=== PATIENT | male | born 1955 | race Two or more races ===

== ENCOUNTER 2017-03-20 08:00 | Outpatient (CLI) | payer MEDICARE, OTHER ==
[2017-03-20 14:01] LABS: BASOPHILS # (AUTO) 0.1 10^3/uL (0.0-0.1); BASOPHILS % (AUTO) 1.2 %; EOSINOPHILS # (AUTO) 0.5 10^3/uL (0.0-0.7); EOSINOPHILS % (AUTO) 6.4 %; HCT - HEMATOCRIT 40.5 % (42.0-52.0); HGB - HEMOGLOBIN 13.5 g/dL (14.0-18.0); LYMPHOCYTES # (AUTO) 2.2 10^3/uL (1.5-3.5); MEAN CORPUSCULAR HEMOGLOBIN 28.9 pg (27.0-31.0); MEAN CORPUSCULAR HGB CONC 33.4 g/dL (32.0-36.0); MEAN CORPUSCULAR VOLUME 86.4 fL (80.0-94.0); MEAN PLATELET VOLUME 8.7 fL (7.4-11.4); MONOCYTES # (AUTO) 1.1 10^3/uL (0.0-1.0); MONOCYTES % (AUTO) 12.7 %; NEUTROPHILS # (AUTO) 4.6 10^3/uL (1.5-6.6); NEUTROPHILS % (AUTO) 53.7 %; RED BLOOD COUNT 4.69 10^6/uL (4.70-6.10); RED CELL DISTRIBUTION WIDTH 13.7 % (12.0-15.0); UNCORRECTED WHITE BLOOD COUNT 8.5 x10^3/uL; WHITE BLOOD COUNT 8.5 x10^3/uL (4.8-10.8)
[2017-03-20 14:34] LABS: BILIRUBIN,DIRECT 0.1 mg/dL (0.1-0.5); BILIRUBIN,TOTAL 0.6 mg/dL (0.2-1.0); CALCIUM 9.3 mg/dL (8.5-10.3); CREATININE 0.8 mg/dL (0.6-1.2); POTASSIUM 3.9 mmol/L (3.5-5.0); TOTAL PROTEIN 7.3 g/dL (6.7-8.2)
== END 2017-03-20 08:01 | disposition home or self-care (01) ==
LOC: LAB.WCP 08:00
PROVIDERS: ATTEND Podiatrist
DX: B35.1 Tinea unguium (principal)
CPT/HCPCS: 36415; 80048; 80076; 85025

== ENCOUNTER 2017-04-10 07:50 | Outpatient (CLI) | payer MEDICARE, OTHER ==
[2017-04-10 13:43] LABS: ALBUMIN/GLOBULIN RATIO 1.5 (1.0-2.2); BILIRUBIN,TOTAL 0.5 mg/dL (0.2-1.0); BUN - BLOOD UREA NITROGEN 21 mg/dL (6-20); CALCIUM 9.3 mg/dL (8.5-10.3); CARBON DIOXIDE - CO2 27 mmol/L (21-32); CHLORIDE 104 mmol/L (101-111); CHOL/HDL RATIO 8.3 (<5.0); CHOLESTEROL 283 mg/dL; CREATININE 0.9 mg/dL (0.6-1.2); GFR - MDRD 86 (>89); GLUCOSE 93 mg/dL (70-100); HDL CHOLESTEROL 34 mg/dL; LDL/HDL RATIO 6.4 (<3.6); POTASSIUM 3.7 mmol/L (3.5-5.0); SODIUM 140 mmol/L (135-145); TOTAL PROTEIN 7.1 g/dL (6.7-8.2); TRIGLYCERIDES 153 mg/dL; VLDL CHOLESTEROL 31 mg/dL
== END 2017-04-10 07:51 | disposition home or self-care (01) ==
LOC: LAB.WCP 07:50
PROVIDERS: ATTEND Family Medicine
DX: Z00.00 Encounter for general adult medical examination without abnormal findings (principal); G89.4 Chronic pain syndrome
CPT/HCPCS: 36415; 80053; 80061; 80306; 84443

== ENCOUNTER 2017-04-17 11:16 | Outpatient (CLI) | payer MEDICARE, OTHER | END 2017-04-17 11:17 | disposition home or self-care (01) | LOC: LAB.WCP 11:16 | PROVIDERS: ATTEND Family Medicine | DX: F32.9 Major depressive disorder, single episode, unspecified (principal) | CPT/HCPCS: 36415; 84403 ==

== ENCOUNTER 2017-05-30 11:37 | Outpatient (CLI) | payer MEDICARE, OTHER ==
[2017-05-30 19:13] LABS: BASOPHILS # (AUTO) 0.1 10^3/uL (0.0-0.1); BASOPHILS % (AUTO) 1.2 %; EOSINOPHILS # (AUTO) 0.5 10^3/uL (0.0-0.7); EOSINOPHILS % (AUTO) 5.3 %; HCT - HEMATOCRIT 40.3 % (42.0-52.0); HGB - HEMOGLOBIN 13.5 g/dL (14.0-18.0); LYMPHOCYTES # (AUTO) 2.2 10^3/uL (1.5-3.5); LYMPHOCYTES % (AUTO) 21.9 %; MEAN CORPUSCULAR HEMOGLOBIN 29.1 pg (27.0-31.0); MEAN CORPUSCULAR HGB CONC 33.5 g/dL (32.0-36.0); MEAN CORPUSCULAR VOLUME 86.9 fL (80.0-94.0); MEAN PLATELET VOLUME 8.2 fL (7.4-11.4); MONOCYTES # (AUTO) 1.1 10^3/uL (0.0-1.0); MONOCYTES % (AUTO) 11.1 %; NEUTROPHILS # (AUTO) 6.1 10^3/uL (1.5-6.6); NEUTROPHILS % (AUTO) 60.5 %; RED BLOOD COUNT 4.64 10^6/uL (4.70-6.10); RED CELL DISTRIBUTION WIDTH 13.7 % (12.0-15.0); UNCORRECTED WHITE BLOOD COUNT 10.1 x10^3/uL; WHITE BLOOD COUNT 10.1 x10^3/uL (4.8-10.8)
[2017-05-30 19:38] LABS: BILIRUBIN,TOTAL 0.5 mg/dL (0.2-1.0); BUN - BLOOD UREA NITROGEN 24 mg/dL (6-20); CALCIUM 9.3 mg/dL (8.5-10.3); CARBON DIOXIDE - CO2 24 mmol/L (21-32); CHLORIDE 104 mmol/L (101-111); CREATININE 1.1 mg/dL (0.6-1.2); GFR - MDRD 68 (>89); GLUCOSE 110 mg/dL (70-100); POTASSIUM 3.8 mmol/L (3.5-5.0); SODIUM 138 mmol/L (135-145); TOTAL PROTEIN 7.7 g/dL (6.7-8.2)
[2017-05-30 20:33] LABS: BILIRUBIN,DIRECT < 0.1 mg/dL (0.1-0.5)
== END 2017-05-30 11:38 | disposition home or self-care (01) ==
LOC: LAB.WCP 11:37
PROVIDERS: ATTEND Podiatrist
DX: B35.1 Tinea unguium (principal)
CPT/HCPCS: 36415; 80048; 80076; 85025

== ENCOUNTER 2017-06-27 12:09 | Outpatient (CLI) | payer MEDICARE, OTHER ==
[2017-06-27 13:18] LABS: CREATININE 0.9 mg/dL (0.6-1.2)
== END 2017-06-27 12:10 | disposition home or self-care (01) ==
LOC: LAB.WCP 12:09
PROVIDERS: ATTEND Podiatrist
DX: B35.1 Tinea unguium (principal)
CPT/HCPCS: 36415; 82565; 84520

== ENCOUNTER 2017-07-01 09:15 | Outpatient (CLI) | payer MEDICARE, OTHER ==
[2017-07-01 14:22] LABS: ALBUMIN/GLOBULIN RATIO 1.3 (1.0-2.2); BILIRUBIN,TOTAL 0.3 mg/dL (0.2-1.0); BUN - BLOOD UREA NITROGEN 19 mg/dL (6-20); CALCIUM 9.5 mg/dL (8.5-10.3); CARBON DIOXIDE - CO2 27 mmol/L (21-32); CHLORIDE 104 mmol/L (101-111); CHOL/HDL RATIO 6.3 (<5.0); CHOLESTEROL 227 mg/dL; GFR - MDRD 76 (>89); GLUCOSE 98 mg/dL (70-100); HDL CHOLESTEROL 36 mg/dL; LDL/HDL RATIO 4.7 (<3.6); POTASSIUM 3.8 mmol/L (3.5-5.0); SODIUM 139 mmol/L (135-145); TOTAL PROTEIN 7.4 g/dL (6.7-8.2); TRIGLYCERIDES 110 mg/dL; VLDL CHOLESTEROL 22 mg/dL
== END 2017-07-01 09:16 | disposition home or self-care (01) ==
LOC: LAB.WCP 09:15
PROVIDERS: ATTEND Family Medicine
DX: E78.5 Hyperlipidemia, unspecified (principal)
CPT/HCPCS: 36415; 80053; 80061

== ENCOUNTER 2017-10-13 08:00 | Outpatient (CLI) | payer MEDICARE, OTHER ==
[2017-10-13 13:01] LABS: ALBUMIN/GLOBULIN RATIO 1.3 (1.0-2.2); BILIRUBIN,TOTAL 0.5 mg/dL (0.2-1.0); BUN - BLOOD UREA NITROGEN 18 mg/dL (6-20); CALCIUM 9.2 mg/dL (8.5-10.3); CARBON DIOXIDE - CO2 25 mmol/L (21-32); CHLORIDE 104 mmol/L (101-111); CHOL/HDL RATIO 5.5 (<5.0); CHOLESTEROL 203 mg/dL; CREATININE 0.9 mg/dL (0.6-1.2); GFR - MDRD 86 (>89); GLUCOSE 97 mg/dL (70-100); HDL CHOLESTEROL 37 mg/dL; POTASSIUM 3.7 mmol/L (3.5-5.0); SODIUM 138 mmol/L (135-145); TOTAL PROTEIN 7.5 g/dL (6.7-8.2); TRIGLYCERIDES 92 mg/dL; VLDL CHOLESTEROL 18 mg/dL
== END 2017-10-13 08:01 | disposition home or self-care (01) ==
LOC: LAB.WCP 08:00
PROVIDERS: ATTEND Family Medicine
DX: E78.5 Hyperlipidemia, unspecified (principal)
CPT/HCPCS: 36415; 80053; 80061

== ENCOUNTER 2018-02-02 07:54 | Outpatient (CLI) | payer MEDICARE, OTHER ==
[2018-02-02 13:17] LABS: ALBUMIN 4.2 g/dL (3.2-5.5); ALBUMIN/GLOBULIN RATIO 1.4 (1.0-2.2); ALKALINE PHOSPHATASE 56 IU/L (42-121); ALT ALANINE AMINOTRANSFERASE 22 IU/L (10-60); AST ASPARTATE AMINOTRANSFERASE 25 IU/L (10-42); BILIRUBIN,TOTAL 0.4 mg/dL (0.2-1.0); BUN - BLOOD UREA NITROGEN 19 mg/dL (6-20); CALCIUM 8.9 mg/dL (8.5-10.3); CARBON DIOXIDE - CO2 28 mmol/L (21-32); CHLORIDE 103 mmol/L (101-111); CHOLESTEROL 174 mg/dL; GFR - MDRD 76 (>89); GLUCOSE 96 mg/dL (70-100); HDL CHOLESTEROL 32 mg/dL; LDL CHOLESTEROL,CALCULATED 124 mg/dL; SODIUM 137 mmol/L (135-145); TOTAL PROTEIN 7.1 g/dL (6.7-8.2); VLDL CHOLESTEROL 18 mg/dL
[2018-02-02 13:18] LABS: CHOL/HDL RATIO 5.4 (<5.0); LDL/HDL RATIO 3.9 (<3.6)
== END 2018-02-02 07:55 | disposition home or self-care (01) ==
LOC: LAB.WCP 07:54
PROVIDERS: ATTEND Family Medicine
DX: E78.5 Hyperlipidemia, unspecified (principal)
CPT/HCPCS: 36415; 80053; 80061; 83721

== ENCOUNTER 2018-05-05 07:48 | Outpatient (CLI) | payer OTHER, MEDICARE ==
[2018-05-05 13:48] LABS: ALBUMIN 3.9 g/dL (3.2-5.5); ALBUMIN/GLOBULIN RATIO 1.1 (1.0-2.2); ALKALINE PHOSPHATASE 51 IU/L (42-121); ALT ALANINE AMINOTRANSFERASE 22 IU/L (10-60); AST ASPARTATE AMINOTRANSFERASE 23 IU/L (10-42); BILIRUBIN,TOTAL 0.6 mg/dL (0.2-1.0); BUN - BLOOD UREA NITROGEN 23 mg/dL (6-20); CALCIUM 9.1 mg/dL (8.5-10.3); CARBON DIOXIDE - CO2 28 mmol/L (21-32); CHLORIDE 106 mmol/L (101-111); CHOL/HDL RATIO 4.4 (<5.0); CHOLESTEROL 151 mg/dL; CREATININE 0.9 mg/dL (0.6-1.2); GFR - MDRD 85 (>89); GLUCOSE 96 mg/dL (70-100); HDL CHOLESTEROL 34 mg/dL; LDL CHOLESTEROL,CALCULATED 101 mg/dL; SODIUM 140 mmol/L (135-145); TOTAL PROTEIN 7.3 g/dL (6.7-8.2); VLDL CHOLESTEROL 16 mg/dL
== END 2018-05-05 07:49 | disposition home or self-care (01) ==
LOC: LAB.WCP 07:48
PROVIDERS: ATTEND Family Medicine
DX: E78.5 Hyperlipidemia, unspecified (principal)
CPT/HCPCS: 36415; 80053; 80061; 83721

== ENCOUNTER 2018-09-28 10:02 | Outpatient (CLI) | payer OTHER, MEDICARE ==
[2018-09-28 15:16] LABS: % IRON SATURATION 28 % (20-50); IRON 69 ug/dL (45-182); TOTAL IRON BINDING CAPACITY 249 ug/dL (250-450); TRANSFERRIN 178 mg/dL (180-329)
== END 2018-09-28 23:59 ==
LOC: LAB.WCP 10:02
PROVIDERS: ATTEND Physician Assistant
DX: D64.9 Anemia, unspecified (principal)
CPT/HCPCS: 36415; 83540; 84466

== ENCOUNTER 2019-01-06 08:00 | Outpatient (CLI) | payer OTHER, MEDICARE ==
[2019-01-06 12:31] LABS: BASOPHILS # (AUTO) 0.1 10^3/uL (0.0-0.1); BASOPHILS % (AUTO) 1.5 %; EOSINOPHILS # (AUTO) 0.5 10^3/uL (0.0-0.7); EOSINOPHILS % (AUTO) 5.9 %; HGB - HEMOGLOBIN 12.9 g/dL (14.0-18.0); LYMPHOCYTES # (AUTO) 2.1 10^3/uL (1.5-3.5); LYMPHOCYTES % (AUTO) 25.8 %; MEAN CORPUSCULAR HEMOGLOBIN 28.9 pg (27.0-31.0); MEAN CORPUSCULAR HGB CONC 33.7 g/dL (32.0-36.0); MEAN CORPUSCULAR VOLUME 85.9 fL (80.0-94.0); MEAN PLATELET VOLUME 8.4 fL (7.4-11.4); MONOCYTES % (AUTO) 12.3 %; NEUTROPHILS # (AUTO) 4.4 10^3/uL (1.5-6.6); NEUTROPHILS % (AUTO) 54.5 %; PLT - PLATELET COUNT 245 10^3/uL (130-450); RED BLOOD COUNT 4.45 10^6/uL (4.70-6.10); RED CELL DISTRIBUTION WIDTH 13.4 % (12.0-15.0); WHITE BLOOD COUNT 8.1 x10^3/uL (4.8-10.8)
[2019-01-06 13:10] LABS: % IRON SATURATION 29 % (20-50); ALBUMIN 4.1 g/dL (3.2-5.5); ALBUMIN/GLOBULIN RATIO 1.3 (1.0-2.2); ALKALINE PHOSPHATASE 44 IU/L (42-121); ALT ALANINE AMINOTRANSFERASE 23 IU/L (10-60); AST ASPARTATE AMINOTRANSFERASE 25 IU/L (10-42); BILIRUBIN,TOTAL 0.7 mg/dL (0.2-1.0); BUN - BLOOD UREA NITROGEN 21 mg/dL (6-20); CALCIUM 8.9 mg/dL (8.5-10.3); CARBON DIOXIDE - CO2 27 mmol/L (21-32); CHLORIDE 104 mmol/L (101-111); CHOL/HDL RATIO 3.7 (<5.0); CHOLESTEROL 158 mg/dL; CREATININE 0.7 mg/dL (0.6-1.2); GFR - MDRD 114 (>89); GLUCOSE 103 mg/dL (70-100); HDL CHOLESTEROL 43 mg/dL; IRON 80 ug/dL (45-182); LDL CHOLESTEROL,CALCULATED 101 mg/dL; LDL/HDL RATIO 2.3 (<3.6); SODIUM 139 mmol/L (135-145); TOTAL IRON BINDING CAPACITY 280 ug/dL (250-450); TOTAL PROTEIN 7.2 g/dL (6.7-8.2); TRANSFERRIN 200 mg/dL (180-329); VLDL CHOLESTEROL 14 mg/dL
== END 2019-01-06 23:59 | disposition home or self-care (01) ==
LOC: LAB.WCP 08:00
PROVIDERS: ATTEND Family Medicine
DX: I10 Essential (primary) hypertension (principal); E78.5 Hyperlipidemia, unspecified; D64.9 Anemia, unspecified
CPT/HCPCS: 36415; 80053; 80061; 83540; 83721; 84466; 85025

== ENCOUNTER 2019-10-12 10:05 | Outpatient (CLI) | payer MEDICARE, OTHER ==
[2019-10-12 14:54] LABS: ALBUMIN 4.2 g/dL (3.2-5.5); ALBUMIN/GLOBULIN RATIO 1.4 (1.0-2.2); BILIRUBIN,TOTAL 0.5 mg/dL (0.2-1.0); CALCIUM 9.1 mg/dL (8.5-10.3); CREATININE 0.9 mg/dL (0.6-1.2); TOTAL PROTEIN 7.2 g/dL (6.7-8.2)
[2019-10-12 15:07] LABS: BASOPHILS # (AUTO) 0.1 10^3/uL (0.0-0.1); BASOPHILS % (AUTO) 1.4 %; EOSINOPHILS # (AUTO) 0.6 10^3/uL (0.0-0.7); HGB - HEMOGLOBIN 12.5 g/dL (14.0-18.0); LYMPHOCYTES # (AUTO) 1.8 10^3/uL (1.5-3.5); LYMPHOCYTES % (AUTO) 21.3 %; MEAN CORPUSCULAR HEMOGLOBIN 27.9 pg (27.0-31.0); MEAN PLATELET VOLUME 10.5 fL (7.4-11.4); NEUTROPHILS # (AUTO) 4.9 10^3/uL (1.5-6.6); NEUTROPHILS % (AUTO) 57.9 %; PLT - PLATELET COUNT 267 10^3/uL (130-450); RED BLOOD COUNT 4.48 10^6/uL (4.70-6.10); RED CELL DISTRIBUTION WIDTH 12.8 % (12.0-15.0); WHITE BLOOD COUNT 8.5 x10^3/uL (4.8-10.8)
[2019-10-13 10:01] LABS: % IRON SATURATION 31 % (20-50); IRON 86 ug/dL (45-182); TOTAL IRON BINDING CAPACITY 277 ug/dL (250-450); TRANSFERRIN 198 mg/dL (180-329)
== END 2019-10-12 23:59 | disposition home or self-care (01) ==
LOC: LAB.WCP 10:05
PROVIDERS: ATTEND Physician Assistant
DX: I10 Essential (primary) hypertension (principal); D64.9 Anemia, unspecified
CPT/HCPCS: 36415; 80053; 83540; 84466; 85025

== ENCOUNTER 2020-01-19 13:42 | Outpatient (CLI) | payer MEDICARE, OTHER ==
[2020-01-19 17:58] LABS: BASOPHILS # (AUTO) 0.1 10^3/uL (0.0-0.1); BASOPHILS % (AUTO) 1.3 %; EOSINOPHILS # (AUTO) 0.6 10^3/uL (0.0-0.7); EOSINOPHILS % (AUTO) 6.8 %; HGB - HEMOGLOBIN 12.5 g/dL (14.0-18.0); LYMPHOCYTES # (AUTO) 2.4 10^3/uL (1.5-3.5); MEAN CORPUSCULAR HEMOGLOBIN 29.3 pg (27.0-31.0); MEAN CORPUSCULAR VOLUME 91.8 fL (80.0-94.0); MEAN PLATELET VOLUME 10.4 fL (7.4-11.4); MONOCYTES % (AUTO) 11.3 %; NEUTROPHILS # (AUTO) 4.8 10^3/uL (1.5-6.6); NEUTROPHILS % (AUTO) 53.3 %; PLT - PLATELET COUNT 252 10^3/uL (130-450); RED BLOOD COUNT 4.26 10^6/uL (4.70-6.10); RED CELL DISTRIBUTION WIDTH 12.8 % (12.0-15.0)
== END 2020-01-19 23:59 | disposition home or self-care (01) ==
LOC: LAB.WCP 13:42
PROVIDERS: ATTEND Physician Assistant
DX: D64.9 Anemia, unspecified (principal)
CPT/HCPCS: 36415; 85025

== ENCOUNTER 2020-04-03 08:00 | Outpatient (CLI) | payer MEDICARE, OTHER ==
[2020-04-03 12:11] LABS: BASOPHILS # (AUTO) 0.1 10^3/uL (0.0-0.1); BASOPHILS % (AUTO) 1.4 %; EOSINOPHILS # (AUTO) 0.6 10^3/uL (0.0-0.7); EOSINOPHILS % (AUTO) 6.6 %; HGB - HEMOGLOBIN 13.3 g/dL (14.0-18.0); LYMPHOCYTES # (AUTO) 2.2 10^3/uL (1.5-3.5); LYMPHOCYTES % (AUTO) 24.5 %; MEAN CORPUSCULAR HEMOGLOBIN 28.6 pg (27.0-31.0); MEAN CORPUSCULAR HGB CONC 32.3 g/dL (32.0-36.0); MEAN CORPUSCULAR VOLUME 88.6 fL (80.0-94.0); MEAN PLATELET VOLUME 10.4 fL (7.4-11.4); MONOCYTES # (AUTO) 0.9 10^3/uL (0.0-1.0); MONOCYTES % (AUTO) 10.7 %; NEUTROPHILS % (AUTO) 56.5 %; PLT - PLATELET COUNT 247 10^3/uL (130-450); RED BLOOD COUNT 4.65 10^6/uL (4.70-6.10); RED CELL DISTRIBUTION WIDTH 12.6 % (12.0-15.0); WHITE BLOOD COUNT 8.8 x10^3/uL (4.8-10.8)
[2020-04-03 12:34] LABS: ALBUMIN 4.1 g/dL (3.2-5.5); ALBUMIN/GLOBULIN RATIO 1.3 (1.0-2.2); BILIRUBIN,TOTAL 0.5 mg/dL (0.2-1.0); CALCIUM 9.1 mg/dL (8.5-10.3); CREATININE 1.1 mg/dL (0.6-1.2); TOTAL PROTEIN 7.2 g/dL (6.7-8.2)
== END 2020-04-03 23:59 | disposition home or self-care (01) ==
LOC: LAB.WCP 08:00
PROVIDERS: ATTEND Nurse Practitioner Family
DX: D64.9 Anemia, unspecified (principal); R00.2 Palpitations
CPT/HCPCS: 36415; 80053; 84443; 85025

== ENCOUNTER 2020-04-06 07:39 | Outpatient (CLI) | payer MEDICARE, OTHER | END 2020-04-06 07:40 | disposition home or self-care (01) | LOC: DI 07:39 | PROVIDERS: ATTEND Nurse Practitioner Family | DX: I11.9 Hypertensive heart disease without heart failure (principal); I34.0 Nonrheumatic mitral (valve) insufficiency; R00.2 Palpitations | CPT/HCPCS: 93306 ==

== ENCOUNTER 2020-05-30 15:10 | Outpatient (CLI) | payer MEDICARE, OTHER ==
[2020-05-30 16:39] VITALS: BP 158/84
--- NOTE | 2020-05-30 16:39 | SLEEP CARE CONSULTATION ---
Information from patient questionnaire entered by Amrita Luther. I have reviewed and concur with the information entered by Amrita Luther. This document represents the service I personally performed and the decisions made by me, Miri Thomason ARNP. History of Present Illness Service Date and Time: 05/30/2020 1510 Reason for Visit: New patient Chief Complaint: reports: Snoring, Observed pauses in breathing, Fatigue, Other (Doctor's orders). denies: Unrefreshed sleep, Excessive daytime sleepiness, Frequent awakenings at night Duration of Symptoms: 6 years Usual bedtime: 11 PM Time it takes to fall asleep: 5-10 minutes Snores at night: Yes Observed to quit breathing while asleep: Yes (According to my ) Sleeps alone due to snoring: Yes Number of times waking at night: once Reasons for waking at night: reports: Pain, Bathroom. denies: Choking, Snoring, Gasping for air Toss, Turn, or Twitch while sleeping: No Recalls having dreams: Yes (Often) Usually gets out of bed at: 6:30 AM Feels refreshed in the morning: Yes Morning headache: No Sleepy or fatigued during the day: Yes (Usually about 3 PM) Ever fallen asleep while driving: Yes (As a teenager; he is a drowsy passenger in the car) Takes day naps: Yes (Often) Dreams during day naps: Yes Prior sleep studies: No Additional HPI information: Patient presents with a history of loud snoring and observed pauses in breathing while sleeping. He states his commercial diver sent him in for evaluation due to increase in symptoms with his heart murmur. Since February 2020, he has been having an increase in fatigue and trouble concentrating with fluttering heart palpitations. He states not excessively sleepy but that given the chance in the afternoon he could easily take a nap. He denies any drowsy driving. - Parasomnia Symptoms Ever been unable to move upon waking from sleep: No Walks in sleep: No Talks in sleep: No Ever acted out dreams in sleep: No Ever felt weak in the knees when startled or emotional: No Bothered by creepy, crawly, restless sensations in legs: No Problems with memory or concentration: Yes (Seldom) Subjective Initial [place] Sleepiness Scale score: 7 (in 2019) Past Medical History Past Medical History: reports: Hypertension (worse when at doctors office sometimes), Arthritis, Anemia, Asthma, Depression, Other (heart murmur). 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 Patient is and lives in [place]. Have you smoked in the past 12 months: No Cigarettes per day (20/pack): 20 Years of smokin Quit date: 2003 Smoking Pack Years: 3.0 Alcohol use: Yes Alcohol amount and frequency: 1 drink 3 times a week Caffeine use: Yes Caffeine amount and frequency: 2 cups a day Family History Family history of sleep disordered breathing: No Family Hx Sleep Apnea: Father: Snoring Allergies and Home Medications Drug allergies reviewed: Yes (tramadol ER) Home medication list reviewed: Yes (see list) Allergy and home medication list: albuterol advair gabapentin cyclobenzaprine diclofenac sodium amlodipine hydralazine Review of Systems Weight loss over past 5 years: 5 Cardiovascular: reports: high blood pressure, palpitations, have to sleep sitting up, other (heart murmur causing problems since February, has had murmur since child). denies: chest pain, irregular heart rate or pulse Respiratory: reports: wheeze. denies: shortness of breath, chronic cough Gastrointestinal: denies: heartburn, difficulty swallowing Urinary: reports: urgency. denies: impotence Neurological: reports: gait or balance problems (spinal related, 5 vertebrae in neck fused and 5 vertebrae in lumbar fused). denies: headaches, seizure, head trauma, disorientation Psychiatric: reports: depression (occasional). denies: anxiety, mood disorder, claustrophobia Ear/Nose/Throat: reports: nasal congestion (seasonal allergies), dry mouth/throat (after snoring, when sleeping prone position; sleeps sitting up due to back issues), wisdom teeth removed. denies: sinus problems, nose bleeds, hoarseness, injury to nose, tonsillectomy Endocrine: reports: sluggishness, increased urination. denies: thyroid disease Musculoskeletal: reports: joint pain, muscle pain or cramping, mobility problems Immunologic: reports: sneezing, itching, allergies to food or environment Physical Exam Blood Pressure: 158/84 Cuff size: long Heart Rate: 59 O2 Saturation: 97 Height: 6 ft 1 in Weight: 211 lb 3.2 oz Body Mass Index: 27.8 BMI Classification: Overweight Neck circumference: 16.75 (inches) HEENT: No craniofacial malformation Nostrils: patent to airflow Turbinates: normal Septum: midline Mouth and throat: normal Soft palate: normal Uvula: long Uvula visualization: 50% Mallampati Class II Tongue: normal in size Tonsils: small Chin and jaw: normal size and position Neck: normal w/o lymphadenopathy or thyromegaly Heart: regular rate and rhythm, murmur Lungs: clear bilaterally Impression and Plan 1. Suspected Obstructive Sleep Apnea-Hypopnea Syndrome, as suggested by a history of loud and irregular snoring, observed cessation of breath while asleep, cognitive impairment, and daytime sleepiness due to not being able to sleep well due to pain. Patient with history of heart murmur (mitral reflux), depression and hypertension. Narrow oropharynx and obesity are common predisposing factors for obstructive sleep apnea-hypopnea syndrome. I recommend proceeding to polysomnography to confirm the diagnosis and to assess severity. If the patient has significant sleep disordered breathing, a manual CPAP titration study will also be performed to find the optimal treatment pressure. I informed the patient of what the sleep studies involve and after some discussion, obtained agreement to proceed. The pathophysiology of obstructive sleep apnea-hypopnea syndrome was discussed with the patient and health risks of cardiovascular and cerebrovascular disease if not treated. AASM brochure for obstructive sleep apnea-hypopnea syndrome given and reviewed. Risks of drowsy driving discussed in detail and patient advised to avoid long distance driving and to pulling unit operator at the first sign of drowsiness. Patient agreed to plan. * Schedule polysomnography +- manual CPAP titration study. * Avoid long distance driving or driving when feeling sleepy. * Avoid alcohol, sedative and muscle relaxant around bedtime. * Attempt to lose weight. * Review instructions provided by trained office staff on how to prepare for the sleep study. * Return for follow-up after sleep study completed. Visit Type: In Office Time Spent with Patient (minutes): 33 Provider Statement: I spent 100% of the Face to Face Visit with the patient with greater than 50% spent counseling the patient and coordination of care.
== END 2020-05-30 15:11 | disposition home or self-care (01) ==
LOC: SC 15:10
PROVIDERS: ATTEND Nurse Practitioner Family
DX: R53.83 Other fatigue (principal); R06.81 Apnea, not elsewhere classified; R06.83 Snoring; E66.3 Overweight; Z68.27 Body mass index [BMI] 27.0-27.9, adult
CPT/HCPCS: 99204; G0463; 99212

== ENCOUNTER 2020-07-16 19:42 | Outpatient (CLI) | payer MEDICARE, OTHER | END 2020-07-16 19:43 | disposition home or self-care (01) | LOC: SC 19:42 | PROVIDERS: ATTEND Nurse Practitioner Family | DX: I49.3 Ventricular premature depolarization (principal); G47.61 Periodic limb movement disorder; R53.83 Other fatigue; R06.81 Apnea, not elsewhere classified; R06.83 Snoring; I10 Essential (primary) hypertension | CPT/HCPCS: 95810 ==

== ENCOUNTER 2020-07-24 21:42 | Outpatient (CLI) | payer MEDICARE, OTHER | END 2020-07-24 21:43 | disposition short-term general hospital (02) | LOC: EMS 21:42 | PROVIDERS: ATTEND Surgery | DX: R55 Syncope and collapse (principal); R53.1 Weakness; R42 Dizziness and giddiness; R11.0 Nausea | CPT/HCPCS: A0425; A0427 ==

== ENCOUNTER 2020-07-27 14:08 | Outpatient (CLI) | payer MEDICARE, OTHER ==
--- NOTE | 2020-07-27 14:35 | SLEEP CARE CONSULTATION ---
Information from patient questionnaire entered by Amrita Luther. I have reviewed and concur with the information entered by Amrita Luther. This document represents the service I personally performed and the decisions made by , Miri Thomason ARNP. History of Present Illness Service Date and Time: 07/27/2020 1408 Initial [place] Sleepiness Scale score: 7 (in 2020) Current [place] Sleepiness Scale score: 7 Additional HPI information: EDWIN MORALES returns for follow up and results of the recently performed polysomnography. The patient was informed of the following findings: Patient has no significant sleep disordered breathing with an AHI of 0.5 and a wanda oxygen saturation of 89%. He was also seen to have frequent PVCs and mild periodic leg movements not fragmenting sleep. I explained the pathophysiology behind obstructive sleep apnea. Patient does not have sleep apnea and was advised how weight gain could increase the risk of developing sleep apnea in the future. Patient has light to moderate snoring. Snoring can be reduced by weight loss. Weight loss is best achieved with diet consult. Patient instructed to contact PCP for referral. Snoring can also be treated with an oral appliance from a dentist. Advised to check insurance coverage. In addition, an ENT evaluation can be do to see if other treatment is indicated. Patient counseled not drink alcohol less than 4 hours before bedtime as it can increase snoring and apnea. Patient was cautioned about risks of drowsy driving until sleepiness symptoms resolve. Sleep Study - Results Type of Sleep Study: Polysomnography Prior sleep studies: No Allergies and Home Medications Drug allergies reviewed: Yes (tramadol extended release tablet) Home medication list reviewed: Yes (atorvastatin) Review of Systems Review of systems same as previous: Yes (heart surgery scheduled 08/07/20; mitral valve and double bypass) Physical Exam Heart Rate: 66 O2 Saturation: 97 Height: 6 ft 1 in Weight: 205 lb Body Mass Index: 27.0 BMI Classification: Overweight Impression and Plan 1. Snoring but no significant sleep disordered breathing. Patient advised that often weight loss will reduce snoring as well as apnea risk. An oral appliance can also be used for snoring. This would require a dental consultation. Patient cautioned not to use other online appliances as can cause bite issues. A list of accredited dentists in area and one local dentist who makes oral appliances given. Patient is advised to check if insurance will cover. An ENT consult can also be helpful to determine if any other treatment is an option. 2. Premature ventricular contractions, frequent. Patient has a long history of a heart murmur, heart arrhythmia and hypertension. He is going to surgery on 08-07-2020 to have his mitral valve fixed and a double bypass surgery. He is to continue follow ups with his paring machine operator. 3. Periodic limb movement, mild, that did not fragment patients sleep. Periodic limb movement of sleep (PLMS) is characterized by episodes of repetitive limb movements that occur during sleep and usually involve the lower limbs. The etiology is unknown but can be associated with restless leg syndrome (RLS), neuropathy, spinal cord diseases, kidney disease, rheumatological disorders, narcolepsy, obstructive sleep apnea, and REM sleep behavior disorder. Other factors that can increase PLMS and/or RLS are heredity and iron deficiency as reflected by a low serum ferritin level below 50 to 75mcg / L. Several medications can precipitate or aggravate PLMS such as selective serotonin re- uptake inhibitor antidepressants, tricyclic antidepressants, lithium, and dopamine receptor antagonists with the exception of bupropion. Caffeine can also aggravate PLMS and should be avoided. Sleep hygiene methods can also improve sleep as well as lifestyle changes such as regular exercise. Patient was advised that no treatment is needed at this time. If symptoms increase, then further evaluation is indicated. Follow up with Cardiology for frequent PVCs Attempt to lose weight. Avoid alcohol consumption near bedtime. Follow up with PCP for mild PLMs as needed The patient is again cautioned about driving until sleepiness completely resolves. Return as needed for worsening symptoms or change in symptoms. Counseling Topics: Weight loss health impact Follow up with: Office Nurse Practitioner Visit Type: In Office Time Spent with Patient (minutes): 16 Provider Statement: I spent 100% of the Face to Face Visit with the patient with greater than 50% spent counseling the patient and coordination of care.
== END 2020-07-27 14:09 | disposition home or self-care (01) ==
LOC: SC 14:08
PROVIDERS: ATTEND Nurse Practitioner Family
DX: R06.83 Snoring (principal); I49.3 Ventricular premature depolarization; G47.61 Periodic limb movement disorder; E66.3 Overweight; Z68.27 Body mass index [BMI] 27.0-27.9, adult
CPT/HCPCS: 99213; G0463; 99212

== ENCOUNTER 2020-09-04 08:27 | Outpatient (CLI) | payer MEDICARE, OTHER ==
[2020-09-04] MEDS ORDERED: GADOBUTROL 10 MMOL/10 ML VIAL IVP ONE (09:36)
--- NOTE | 2020-09-04 10:08 | MRI Report ---
PROCEDURE: Brain W/WO INDICATIONS: TIA, CORONARY ARTERY DISEASE CONTRAST: IV CONTRAST: Gadavist ml: 9 TECHNIQUE: Noncontrast axial T1 spin echo, axial T2 fast spin echo, sagittal and axial FLAIR, coronal T2 fast sp in echo, axial gradient echo, axial diffusion and ADC through the brain. After the administration of contrast, axial and coronal T1 spin echo with fat saturation through the brain. COMPARISON: None. FINDINGS: Image quality: Diagnostic, with note made of motion artifact. CSF spaces: Basal cisterns are patent. No extra-axial fluid collections. Ventricles are normal in size and shape. Brain: No midline shift. No intracranial bleeds or masses. No abnormal intracranial enhancement. There is cerebral volume loss for age. There is periventricular white matter chronic small vessel is chemic change. The brainstem appears normal. Diffusion-weighted images demonstrate no acute ischemi c insults. No chronic ischemic insults. Normal intravascular flow voids are present. Incidental no te is made of a cavum of septum pellucidum. This is of likely no clinical consequence, when incidenta lly discovered in isolation. Skull and face: Calvarial marrow is normal in signal. Orbits appear normal. Sinuses: There is a mucous retention cyst seen within the right maxillary sinus. [id number] muc osal thickening is seen within the maxillary sinuses. Mild mucosal thickening is seen within the ethm oid air cells. The remainder of the paranasal sinuses are relatively clear. Bilateral herlinda bullosa are incidentally noted, as on series 901 image 3. No significant abnormal fluid can be seen within th e mastoid air cells or within the middle ear cavities. IMPRESSION: No imaging explanation is found for the patient's presenting symptoms. No findings of a territorial infarction can be seen. No findings of acute or subacute infarction are seen. Age-appropriate brain parenchymal volume loss and chronic small vessel ischemic change can be seen. No masses or abnormal enhancement can be seen. Paranasal sinus disease incidentally noted. Reviewed by: Rafy Barajas MD on 09/04/2020 9:07 AM [facility] Approved by: Rafy Barajas MD on 09/04/2020 9:07 AM [facility] Station ID: [id number]
== END 2020-09-04 08:28 | disposition home or self-care (01) ==
LOC: LAB 08:27
PROVIDERS: ATTEND Internal Medicine Cardiovascular Disease
DX: I25.10 Atherosclerotic heart disease of native coronary artery without angina pectoris (principal)
CPT/HCPCS: 36415; 70553; 82565; A9585

== ENCOUNTER 2020-10-17 12:16 | Outpatient (CLI) | payer MEDICARE, OTHER ==
[2020-10-17 18:11] LABS: BASOPHILS # (AUTO) 0.1 10^3/uL (0.0-0.1); BASOPHILS % (AUTO) 1.2 %; EOSINOPHILS # (AUTO) 0.5 10^3/uL (0.0-0.7); EOSINOPHILS % (AUTO) 5.9 %; HGB - HEMOGLOBIN 12.7 g/dL (14.0-18.0); MEAN CORPUSCULAR HEMOGLOBIN 28.7 pg (27.0-31.0); MEAN CORPUSCULAR HGB CONC 30.5 g/dL (32.0-36.0); MEAN CORPUSCULAR VOLUME 94.1 fL (80.0-94.0); MEAN PLATELET VOLUME 10.7 fL (7.4-11.4); MONOCYTES # (AUTO) 0.9 10^3/uL (0.0-1.0); MONOCYTES % (AUTO) 10.3 %; NEUTROPHILS % (AUTO) 59.4 %; PLT - PLATELET COUNT 231 10^3/uL (130-450); RED BLOOD COUNT 4.42 10^6/uL (4.70-6.10); RED CELL DISTRIBUTION WIDTH 12.7 % (12.0-15.0); WHITE BLOOD COUNT 8.5 x10^3/uL (4.8-10.8)
[2020-10-17 18:44] LABS: ALBUMIN 4.3 g/dL (3.2-5.5); ALBUMIN/GLOBULIN RATIO 1.6 (1.0-2.2); ALKALINE PHOSPHATASE 54 IU/L (42-121); ALT ALANINE AMINOTRANSFERASE 22 IU/L (10-60); AST ASPARTATE AMINOTRANSFERASE 17 IU/L (10-42); BILIRUBIN,TOTAL 0.4 mg/dL (0.2-1.0); BUN - BLOOD UREA NITROGEN 22 mg/dL (6-20); CALCIUM 9.6 mg/dL (8.5-10.3); CARBON DIOXIDE - CO2 28 mmol/L (21-32); CHLORIDE 107 mmol/L (101-111); CREATININE 1.1 mg/dL (0.6-1.2); GLUCOSE 97 mg/dL (70-100); SODIUM 144 mmol/L (135-145)
[2020-10-17 18:46] LABS: CRP - C-REACTIVE PROTEIN < 1.0 mg/dL (0-1.0)
== END 2020-10-17 12:17 | disposition home or self-care (01) ==
LOC: LAB.N 12:16
PROVIDERS: ATTEND Family Medicine
DX: L40.9 Psoriasis, unspecified (principal)
CPT/HCPCS: 36415; 80053; 85025; 85651; 86038; 86140

== ENCOUNTER 2020-11-03 16:11 | Outpatient (CLI) | payer MEDICARE, OTHER ==
[2020-11-03 22:09] LABS: RHEUMATOID FACTOR NEGATIVE (Negative)
--- OUTSIDE RECORDS SUMMARY | 2020-11-08 01:55 | EXTERNAL MEDICAL SUMMARY RPT | Continuity of Care Document ---
:1955 Demographics Phone Unavailable Preferred Language Arabic Marital Status Unknown Gnosticism Affiliation Unknown Race Unknown Ethnic Group Unknown Author Organization [facility] Address [address] [phone] Phone Care Team Providers Name Role Phone MD Unavailable Unavailable PALilliamC Unavailable Unavailable Holiday Unavailable Unavailable Fermin Unavailable Unavailable ANDRES Unavailable Unavailable Problems date description facility 2018-09-28 10:02 ANEMIA, UNSPECIFIED [facility] 2019-01-06 08:00 [facility]EMIA, [facility]PECIFIED [facility] 08:00 HYPERLIPIDEMIA, UNSPECIFIED [facility] 2019-01-06 08:00 ESSENTIAL (PRIMARY) HYPERTENSION [facility] 2019-10-12 10:05 ANEMIA, UNSPECIFIED [facility] 2019-10-12 10:05 ESSENTIAL (PRIMARY) HYPERTENSION [facility] 2020-01-19 13:42 ANEMIA, UNSPECIFIED [facility] 2020-04-03 08:00 ANEMIA, UNSPECIFIED [facility] 2020-04-03 08:00 PALPITATIONS [facility] 2020-04-06 07:39 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 2020-04-06 07:39 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 2020-04-06 07:39 PALPITATIONS [facility] 2020-05-30 15:10 OVERWEIGHT [facility] 2020-05-30 15:10 APNEA, NOT ELSEWHERE CLASSIFIED [facility] 2020-05-30 15:10 SNORING [facility] 2020-05-30 15:10 OTHER FATIGUE [facility] 2020-05-30 15:10 BODY MASS INDEX (BMI) 27.0-27.9, [facility] ADULT 2020-07-16 19:42 PERIODIC LIMB MOVEMENT DISORDER [facility] 2020-07-16 19:42 ESSENTIAL (PRIMARY) HYPERTENSION [facility] 2020-07-16 19:42 VENTRICULAR PREMATURE [facility] 2020-07-16 19:42 APNEA, NOT ELSEWHERE CLASSIFIED [facility] 2020-07-16 19:42 SNORING [facility] 2020-07-16 19:42 OTHER FATIGUE [facility] 2020-07-24 21:42 NAUSEA [facility] 2020-07-24 21:42 DIZZINESS AND GIDDINESS [facility] 2020-07-24 21:42 WEAKNESS [facility] 2020-07-24 21:42 SYNCOPE AND COLLAPSE [facility] [place] 2020-07-27 14:08 OVERWEIGHT [facility] 2020-07-27 14:08 PERIODIC LIMB MOVEMENT DISORDER [facility] 2020-07-27 14:08 VENTRICULAR PREMATURE [facility] DEPOLARIZATION 2020-07-27 14:08 SNORING [facility] 2020-07-27 14:08 BODY MASS INDEX [BMI] 27.0-27.9, [facility] ADULT 2020-08-22 00:00:00 Health-related behavior [facility] [place] [facility] 2020-08-22 00:00:00 Tobacco use and exposure [facility] [place] [facility] 2020-08-22 00:00:00 [facility] 2020-08-22 00:00:[address] [facility] 2020-08-22 00:00:00 [facility] 2020-08-22 00:00:00 Coronary atherosclerosis [facility] artery bypass graft [place] [facility] 2020-08-22 00:00:00 Atherosclerosis of coronary [facility] artery bypass graft(s) without [place] [facility] angina pectoris 2020-08-22 00:00:00 Details of drug misuse behavior [facility] [place] [facility] 2020-08-22 00:00:00 Arteriosclerosis of coronary [facility] artery bypass graft [place] [facility] 2020-08-22 00:00:00 Tobacco smoking status NHWANDY [facility] Primary [facility] [place] [facility] 2020-09-04 08:27 [facility]SI[facility], UNSPECIFIED 2020-09-04 08:27 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 W/O ANG PCTRS 2020-09-28 13:00 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 W/O ANG PCTRS 2020-10-02 14:45 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 W/O ANG PCTRS 2020-10-04 14:45 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 W/O ANG PCTRS 2020-10-04 14:45 ENCNTR FOR SURGICAL AFR [facility] FOLLOWING SURGERY ON THE CIRC SY 2020-10-04 14:45 PRESENCE OF AORTOCORONARY BYPASS [facility] GRAFT 2020-10-09 14:45 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 W/O ANG PCTRS 2020-10-09 14:45 ENCNTR FOR SURGICAL AFR [facility] FOLLOWING SURGERY ON THE CIRC SYS 2020-10-09 14:45 PRESENCE OF AORTOCORONARY BYPASS [facility] GRAFT 2020-10-11 14:45 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 W/O ANG PCTRS 2020-10-11 14:45 ENCNTR FOR SURGICAL AFTCR [facility] FOLLOWING SURGERY ON THE CIRC SY 2020-10-11 14:45 PRESENCE OF AORTOCORONARY BYPASS [facility] GRAFT 2020-10-16 14:45 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 2020-10-17 00:00:00 COMPREHENSIVE METABOLIC PANEL [facility] [place] [facility] 2020-10-17 00:00:00 CBC W/Diff/Plt [facility] Prim [facility] Care [place] [facility] 2020-10-17 00:00:00 Sed Rate [facility] Care [place] [facility] 2020-10-17 00:00:00 [facility] [place] [facility] 2020-10-17 00:00:00 Unspecified visual disturbance [facility] [place] [facility] 2020-10-17 00:00:00 [facility]specified [facility] unspecified site [place] [facility] 2020-10-17 00:00:00 Alcohol intake [facility] Prim [facility] Care [facility] 2020-10-17 00:00:00 Health-related behavior [facility] [place] [facility] 2020-10-17 00:00:00 Tobacco use and exposure [facility] [place] [facility] 2020-10-17 00:00:00 Exercise [facility] [place] [facility] 2020-10-17 00:00:00 Details of drug misuse behavior [facility] [place] [facility] 2020-10-17 00:00:00 Arthritis [facility] Care [place] [facility] 2020-10-17 00:00:00 Alcohol use [facility] [place] [facility] 2020-10-17 00:00:00 Tobacco smoking status NHIS [facility] Primary [facility] [place] [facility] 2020-10-17 00:00:00 Former smoker [facility] 2020-10-17 00:00:00 Disorder of vision 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 W/O ANG PCTRS 2020-10-23 14:45 ENCNTR FOR SURGICAL AFTCR [facility] FOLLOWING SURGERY ON THE CIRC SYS 2020-10-23 14:45 PRESENCE OF AORTOCORONARY BYPASS [facility] GRAFT 2020-10-25 14:45 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 W/O ANG PCTRS 2020-10-25 14:45 ENCNTR FOR SURGICAL AFTCR [facility] FOLLOWING SURGERY ON THE CIRC SYS 2020-10-25 14:45 PRESENCE OF AORTOCORONARY BYPASS [facility] GRAFT 2020-10-30 13:00 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 W/O ANG PCTRS 2020-10-30 13:00 ENCNTR FOR SURGICAL AFR [facility] FOLLOWING SURGERY ON THE CIRC SYS 2020-10-30 13:00 PRESENCE OF AORTOCORONARY BYPASS [facility] GRAFT 2020-10-30 14:45 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 W/O ANG PCTRS 2020-10-30 14:45 ENCNTR FOR SURGICAL AFTCR [facility] FOLLOWING SURGERY ON THE CIRC SYS 2020-10-30 14:45 PRESENCE OF AORTOCORONARY BYPASS [facility] GRAFT 2020-11-01 14:45 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 W/O ANG PCTRS 2020-11-01 14:45 ENCNTR FOR SURGICAL AFTCR [facility] FOLLOWING SURGERY ON THE CIRC SYS 2020-11-01 14:45 PRESENCE OF AORTOCORONARY BYPASS [facility] GRAFT 2020-11-03 00:00 PSORIASIS, UNSPECIFIED [facility] 2020-11-03 16:11 PSORIASIS, UNSPECIFIED [facility] 2020-11-06 14:45 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[place] [facility] CORONARY ARTERY W/O ANG PCTRS 2020-11-06 14:45 ENCNTR FOR SURGICAL AFTCR [facility] FOLLOWING SURGERY ON THE CIRC SYS 2020-11-06 14:45 PRESENCE OF AORTOCORONARY BYPASS [facility] GRAFT Allergies date description facility ADHESIVE \T\ [facility] ALBUTEROL [facility] AMOX[facility]ILLIN [facility] CELECOXIB [facility] HYDROCODONE [facility] OXYCODONE [facility] PENICILLIN V POTASSIUM [facility] ed[facility] [place] TRAZODONE [facility] PROPOXYPHENE N-ACETAMINOPHEN [facility] NO KNOWN ENVIRONMENTAL ALLERGIES [facility] NSAIDS [facility] PENICILLINS [facility] NO ALLERGY INFORMATION ON FILE [facility] FLECAINIDE [facility] HYDROCODONE [facility] MONTELUKAST [facility] MORPHINE [facility] PENICILLINS [facility] VENOM-HONEY BEE [facility] NO KNOWN ALLERGIES [facility] NO KNOWN FOOD ALLERGIES [facility] NO ALLERGY INFORMATION AVAILABLE [facility] PENICILLINS [facility] CEPHALOSPORINS [facility] SULFA (SULFONAMIDE ANTIBIOTICS) [facility] NO KNOWN ALLERGIES [facility] LATEX [facility] HALOPERIDOL [facility] ASPIRIN [facility] INFLIXIMAB-DYYB [facility] CEPHALEXIN [facility] CLINDAMYCIN [facility] CIPROFLOXACIN [facility] AMOXICILLIN [facility] BEE VENOM PROTEIN (HONEY BEE) [facility] IODINE [facility] OXYCODONE-ACETAMINOPHEN [facility] SULFAMETHOXAZOLE-TRIMETHOPRIM [facility] codeine [facility] amoxicillin [facility] Medications date description facility 2020-08-12 00:00:00 [facility] [place] [facility] 2020-08-12 00:00:00 [facility] [place] [facility] 2020-08-12 00:00:00 [facility] [place] [facility] 2020-08-12 00:00:00 [facility] [place] [facility] 2020-08-12 00:00:00 [facility] [place] [facility] 2020-08-12 00:00:00 [facility] [place] [facility] 2020-08-12 00:00:00 [facility] [place] [facility] 2020-08-12 00:00:00 [facility] [place] [facility] 2020-08-12 00:00:00 FUROSEMIDE [facility] [place] [facility] 2020-08-12 00:00:00 [facility]OTIDINE [facility] [place] [facility] 2020-08-12 00:00:00 AMIODARONE HCL [facility] [place] [facility] 2020-08-12 00:00:00 DOCUSATE SODIUM [facility] [place] [facility] 2020-08-12 00:00:00 DOCUSATE SODIUM [facility] [place] [facility] 2020-08-12 00:00:00 [facility] [place] [facility] 2020-08-12 00:00:00 FUROSEMIDE [facility] [place] [facility] 2020-08-12 00:00:00 AMIODARONE [facility]CL [facility] [place] [facility] 2020-08-12 00:00:00 null [facility] [place] [facility] 2020-08-12 00:00:00 null [facility] [place] [facility] 2020-08-12 00:00:00 null [facility] [place] [facility] 2020-08-12 00:00:00 null [facility] [place] [facility] 2020-08-12 00:00:00 null [facility] [place] [facility] 2020-08-12 00:00:00 null [facility] [place] [facility] 2020-08-12 00:00:00 null [facility] [place] [facility] 2020-08-12 00:00:00 null [facility] [place] [facility] 2020-08-12 00:00:00 FUROSEMIDE [facility] [place] [facility] 2020-08-12 00:00:00 FAMOTIDINE [facility] [place] [facility] 2020-08-12 00:00:00 AMIODARONE HCL [facility] [place] [facility] 2020-08-12 00:00:00 DOCUSATE SODIUM [facility] [place] [facility] 2020-08-12 00:00:00 DOCUSATE SODIUM [facility] [place] [facility] 2020-08-12 00:00:00 FAMOTIDINE [facility] [place] [facility] 2020-08-12 00:00:00 FUROSEMIDE [facility] [place] [facility] 2020-08-12 00:00:00 AMIODARONE HCL [facility] [place] [facility] 2020-08-22 00:00:00 null [facility] [place] [facility] 2020-08-22 00:00:00 null [facility] [place] [facility] 2020-08-22 00:00:00 HYDROMORPHONE HCL [facility] [place] [facility] 2020-08-22 00:00:00 HYDROMORPHONE HCL [facility] [place] [facility] 2020-08-22 00:00:00 null [facility] [place] [facility] 2020-08-22 00:00:00 null [facility] [place] [facility] 2020-08-22 00:00:00 HYDROMORPHONE HCL [facility] [place] [facility] 2020-08-22 00:00:00 HYDROMORPHONE HCL [facility] [place] [facility] 2020-09-05 00:00:00 null [facility] [place] [facility] 2020-09-05 00:00:00 null [facility] [place] [facility] 2020-09-05 00:00:00 null [facility] [place] [facility] 2020-09-05 00:00:00 null [facility] [place] [facility] 2020-09-05 00:00:00 LISINOPRIL [facility] [place] [facility] 2020-09-05 00:00:00 METOPROLOL TARTRATE [facility] [place] [facility] 2020-09-05 00:00:00 LISINOPRIL [facility] [place] [facility] 2020-09-05 00:00:00 METOPROLOL TARTRATE [facility] [place] [facility] 2020-09-05 00:00:00 null [facility] [place] [facility] 2020-09-05 00:00:00 null [facility] [place] [facility] 2020-09-05 00:00:00 null [facility] [place] [facility] 2020-09-05 00:00:00 null [facility] [place] [facility] 2020-09-05 00:00:00 LISINOPRIL [facility] [place] [facility] 2020-09-05 00:00:00 METOPROLOL TARTRATE [facility] [place] [facility] 2020-09-05 00:00:00 LISINOPRIL [facility] [place] [facility] 2020-09-05 00:00:00 METOPROLOL TARTRATE [facility] [place] [facility] 2020-10-17 00:00:00 null [facility] [place] [facility] 2020-10-17 00:00:00 null [facility] [place] [facility] 2020-10-17 00:00:00 APIXABAN [facility] [place] [facility] 2020-10-17 00:00:00 APIXABAN [facility] [place] [facility] 2020-10-24 00:00:00 null [facility] [place] [facility] 2020-10-24 00:00:00 null [facility] [place] [facility] 2020-10-24 00:00:00 null [facility] [place] [facility] 2020-10-24 00:00:00 null [facility] [place] [facility] 2020-10-24 00:00:00 DICLOFENAC SODIUM [facility] [place] [facility] 2020-10-24 00:00:00 DICLOFENAC SODIUM [facility] [place] [facility] 2020-10-24 00:00:00 DICLOFENAC SODIUM [facility] [place] [facility] 2020-10-25 00:00:00 null [facility] [place] [facility] 2020-10-25 00:00:00 null [facility] [place] [facility] 2020-10-25 00:00:00 DICLOFENAC SODIUM [facility] [place] [facility] Procedures date description facility 2020-10-17 00:00:00 FRANK SCREEN WITH REFLEX [facility] [place] [facility] date description facility 2020-10-17 00:00:00 COMPREHENSIVE METABOLIC PANEL [facility] [place] [facility] date description facility 2020-10-17 00:00:00 CBC W/Diff/Plt [facility] [place] [facility] date description facility 2020-10-17 00:00:00 Sed Rate [facility] [place] [facility] date description facility 2020-10-17 00:00:00 CRP [facility] [place] [facility] date description facility 2020-10-17 00:00:00 [facility] [place] [facility] Results Social History date description facility 2020-08-22 00:00:00 Former smoker [facility] [place] [facility] date description facility 2020-10-17 00:00:00 Former smoker [facility] [place] [facility] Social History date description facility 2020-08-22 00:00:00 Former smoker [facility] [place] [facility] date description facility 2020-10-17 00:00:00 Former smoker [facility] [place] [facility] date description facility [phone]
[2020-11-14 12:36] LABS: HLA-B27 Negative
== END 2020-11-03 23:59 | disposition home or self-care (01) ==
LOC: LAB.WCP 16:11
PROVIDERS: ATTEND Internal Medicine
DX: L40.9 Psoriasis, unspecified (principal)
CPT/HCPCS: 36415; 81599; 86200; 86430; 86812

== ENCOUNTER 2020-11-10 14:02 | Outpatient (CLI) | payer MEDICARE, OTHER ==
--- NOTE | 2020-11-10 15:17 | XRAY Report ---
PROCEDURE: Sacrum/Coccyx INDICATIONS: PSORIASIS TECHNIQUE: 3 views of the sacrum and coccyx acquired. COMPARISON: None. FINDINGS: Bones: No fractures or dislocations. No suspicious bony lesions. Partially visualized lumbar spine fixation hardware. Mild bilateral hip joint degeneration. No sacroiliac ankylosis, or radiographic e rosions identified. No SI joint space narrowing Soft tissues: Visualized bowel gas pattern is normal. No suspicious soft tissue densities. IMPRESSION: Mild bilateral hip joint degeneration. Reviewed by: Jose Maria Stevens MD on 11/10/2020 3:15 PM PST Approved by: Jose Maria Stevens MD on 11/10/2020 3:15 PM PST Station ID: [id number]
--- NOTE | 2020-11-10 15:22 | XRAY Report ---
PROCEDURE: Hand 2 View BILAT INDICATIONS: PSORIASIS TECHNIQUE: 2 views of the hand(s) acquired. COMPARISON: 03/03/2017 FINDINGS: Bones: No fractures or dislocations. No suspicious bony lesions. No marginal lucencies. Soft tissues: No suspicious soft tissue calcifications. IMPRESSION: No specific evidence for erosions identified. Reviewed by: Jose Maria Stevens MD on 11/10/2020 3:21 PM PST Approved by: Jose Maria Stevens MD on 11/10/2020 3:21 PM [facility] Station ID: [id number]
--- NOTE | 2020-11-10 15:25 | XRAY Report ---
PROCEDURE: Foot 2 View BILAT INDICATIONS: PSORIASIS TECHNIQUE: 2 views of the foot were acquired. COMPARISON: None. FINDINGS: Bones: No fractures or dislocations. No suspicious bony lesions. No definite marginal lucencies. M ild bilateral first MTP joint degeneration. Scattered subchondral sclerosis and spurring. Soft tissues: No tibiotalar joint effusion. Achilles tendon appears normal. IMPRESSION: No specific radiographic evidence for erosions identified. Mild bilateral first MTP joint degeneration. Reviewed by: Jose Maria Stevens MD on 11/10/2020 3:23 PM [facility] Approved by: Jose Maria Stevens MD on 11/10/2020 3:23 PM [facility] Station ID: [id number]
== END 2020-11-10 14:03 | disposition home or self-care (01) ==
LOC: DI 14:02
PROVIDERS: ATTEND Internal Medicine
DX: L40.9 Psoriasis, unspecified (principal); M16.0 Bilateral primary osteoarthritis of hip; M19.072 Primary osteoarthritis, left ankle and foot; M19.071 Primary osteoarthritis, right ankle and foot

== ENCOUNTER 2020-11-16 15:45 | Outpatient (CLI) | payer MEDICARE, OTHER ==
[2020-11-16] MEDS ORDERED: IOVERSOL 320 100 ML VIAL IVP ONE ×2 (16:16→20:27)
--- NOTE | 2020-11-16 17:51 | CT Report ---
PROCEDURE: ANGIO NECK W INDICATIONS: VISION CHANGES CONTRAST: IV CONTRAST: Optiray 320 ml: 80 PO CONTRAST: *NO PO CONTRAST TECHNIQUE: After the administration of intravenous contrast, 1.5 mm axial sections acquired from the aortic arch to the [place] of [place]. Coronal 3-D maximum intensity projection (MIP) and/or volume rendering ref ormats were then performed. For radiation dose reduction, the following was used: automated exposur e control, adjustment of mA and/or kV according to patient size. COMPARISON: Correlation is made with the accompanying head CT angiogram, 11/16/2020. FINDINGS: Image quality: There is artifact associated with the metallic hardware. Carotid system: The great vessels demonstrate a conventional anatomy as they arise from the aortic a rch. The origins of the common carotid arteries appear patent. The common carotid arteries demonstr ate normal calibers and courses. The bifurcation regions demonstrate atherosclerotic irregularity an d calcification. There is widening of the left carotid bulb and prior endarterectomy change is presen t. There is 40-50% narrowing seen involving the right proximal internal carotid artery. The more dist al internal carotid arteries demonstrate mild tortuosity, yet normal caliber. Posterior circulation: The origins of the vertebral arteries appear patent. There is focal calcifica tion seen involving the right V4 segment, with approximately 50% narrowing. The right vertebral arter y is dominant to the left. Portions of the left vertebral artery are not well seen, secondary to stre ak artifact. They join to form a normal appearing basilar artery. Soft tissues: Visualized neck soft tissues demonstrate no suspicious abnormalities. The thyroid gla nd is normal in size. Bones: No suspicious bony lesions. Visualized cervical spine appears normally aligned. Sternotomy wires are partially seen. Cervical spine fixation hardware is seen, with associated streak artifact. Moderate to prominent underlying cervical spine degenerative changes can be seen. IMPRESSION: 40-50% narrowing seen involving the right proximal internal carotid artery. Apparent prior left carotid endarterectomy change. Please correlate with known patient history. The right vertebral artery is dominant to the left. Approximately 50% narrowing seen involving the right V4 segment. Cervical spine postoperative change is seen, with associated streak artifact. Moderate to prominent cervical spine degenerative changes are seen. The estimate of stenosis included in the report of the imaging study was calculated using the NASCET method Reviewed by: Rafy Barajas MD on 11/16/2020 4:50 PM [facility] Approved by: Rafy Barajas MD on 11/16/2020 4:50 PM [facility] Station ID: [id number]
--- NOTE | 2020-11-16 17:54 | CT Report ---
PROCEDURE: ANGIO HEAD W/WO INDICATIONS: VISION CHANGES CONTRAST: IV CONTRAST: Optiray 320 ml: 80 PO CONTRAST: *NO PO CONTRAST TECHNIQUE: Precontrast 4.5 mm thick angled axial sections acquired from the foramen magnum to the vertex. Afte r the administration of intravenous contrast, 1 mm thick sections acquired through the [place] of [place] is. Postcontrast 4.5 mm thick sections then re-acquired from the foramen magnum to the vertex. 3-di mensional ysgehmo-canpyleiv-czujfdysfz (MIP) and/or volume rendering reformats were acquired of the c entral intracranial vasculature. For radiation dose reduction, the following was used: automated ex posure control, adjustment of mA and/or kV according to patient size. COMPARISON: Correlation is made with the accompanying neck CT angiogram, 11/16/2020. Correlation is a lso made with the prior brain MRI 09/04/2020 FINDINGS: Image quality: Excellent. Anterior circulation: Intracranial internal carotid arteries demonstrate atherosclerotic calcificati on and irregularity, with 30-40% narrowing seen on each side. The flow within the paired anterior cer ebral arteries is normal and symmetric. The flow within the middle cerebral arteries is normal and s ymmetric. The anterior communicating artery is seen. No aneurysms are seen. Posterior circulation: The right vertebral artery is dominant to the left. Within the right V4 segmen t, there is focal calcification with approximately 50% narrowing. There is a normal appearing basilar artery. Bilateral type origins of the posterior cerebral arteries can be seen. Flow within th e posterior cerebral arteries is normal and symmetric. No aneurysms are seen. CSF spaces: Ventricles are normal in size and shape. Basal cisterns are patent. No extra-axial flu id collections. Brain: No midline shift. No intracranial bleeds or masses. Mahoney-white matter interface appears int act. Skull and face: Calvarium and facial bones appear intact, without suspicious lesions. Sinuses: Mild mucosal thickening is seen within the paranasal sinuses. No significant abnormal fluid can be seen within the mastoid air cells or within the middle ear cavities. IMPRESSION: Approximately 50% narrowing seen involving the right V4 segment, at a site of focal calcification. The right vertebral artery is dominant to the left. Incidental note is made of: Bilateral type origins of the posterior cerebral arteries Paranasal sinus disease Reviewed by: Rafy Barajas MD on 11/16/2020 4:52 PM [facility] Approved by: Rafy Barajas MD on 11/16/2020 4:52 PM [facility] Station ID: [id number]
== END 2020-11-16 15:46 | disposition home or self-care (01) ==
LOC: DI 15:45
PROVIDERS: ATTEND Internal Medicine
DX: H53.9 Unspecified visual disturbance (principal); M47.812 Spondylosis without myelopathy or radiculopathy, cervical region
CPT/HCPCS: 70496; 70498; Q9967

== ENCOUNTER 2021-05-14 08:10 | Outpatient (CLI) | payer MEDICARE, OTHER ==
[2021-05-14 08:09] LABS: MUDS CUTOFF CONCENTRATIONS CUTOFF CONC BELOW:
[2021-05-14 12:42] LABS: BASOPHILS # (AUTO) 0.1 10^3/uL (0.0-0.1); BASOPHILS % (AUTO) 1.2 %; EOSINOPHILS # (AUTO) 0.7 10^3/uL (0.0-0.7); EOSINOPHILS % (AUTO) 7.9 %; HCT - HEMATOCRIT 41.4 % (42.0-52.0); HGB - HEMOGLOBIN 13.3 g/dL (14.0-18.0); LYMPHOCYTES # (AUTO) 2.2 10^3/uL (1.5-3.5); MEAN CORPUSCULAR HEMOGLOBIN 29.3 pg (27.0-31.0); MEAN CORPUSCULAR HGB CONC 32.1 g/dL (32.0-36.0); MEAN CORPUSCULAR VOLUME 91.2 fL (80.0-94.0); MEAN PLATELET VOLUME 10.4 fL (7.4-11.4); MONOCYTES # (AUTO) 1.2 10^3/uL (0.0-1.0); MONOCYTES % (AUTO) 13.8 %; NEUTROPHILS # (AUTO) 4.5 10^3/uL (1.5-6.6); NEUTROPHILS % (AUTO) 51.9 %; PLT - PLATELET COUNT 217 10^3/uL (130-450); RED BLOOD COUNT 4.54 10^6/uL (4.70-6.10); RED CELL DISTRIBUTION WIDTH 11.9 % (12.0-15.0); WHITE BLOOD COUNT 8.6 x10^3/uL (4.8-10.8)
[2021-05-14 12:54] LABS: AMPHETAMINE SCREEN,URINE NEGATIVE (NEGATIVE); BARBITURATE SCREEN,UR NEGATIVE (NEGATIVE); BENZODIAZEPINES SCREEN, URINE NEGATIVE (NEGATIVE); COCAINE SCREEN URINE NEGATIVE (NEGATIVE); METHADONE SCREEN, URINE NEGATIVE (NEGATIVE); METHAMPHETAMINES SCREEN, URINE NEGATIVE (NEGATIVE); OPIATE SCREEN, URINE NEGATIVE (NEGATIVE); OXYCODONE SCREEN, URINE NEGATIVE (NEGATIVE); PROPOXYPHENE SCREEN, URINE NEGATIVE (NEGATIVE); THC CANNABINOID SCREEN, URINE POSITIVE (NEGATIVE); TRICYCLIC ANTIDEPRESSANT,URINE NEGATIVE (NEGATIVE)
[2021-05-14 13:17] LABS: ALBUMIN 4.5 g/dL (3.2-5.5); ALBUMIN/GLOBULIN RATIO 1.7 (1.0-2.2); ALKALINE PHOSPHATASE 48 IU/L (42-121); ALT ALANINE AMINOTRANSFERASE 45 IU/L (10-60); AST ASPARTATE AMINOTRANSFERASE 33 IU/L (10-42); BILIRUBIN,TOTAL 0.6 mg/dL (0.2-1.0); BUN - BLOOD UREA NITROGEN 26 mg/dL (6-20); CALCIUM 9.1 mg/dL (8.5-10.3); CARBON DIOXIDE - CO2 24 mmol/L (21-32); CHLORIDE 104 mmol/L (101-111); CHOL/HDL RATIO 3.1 (<5.0); CHOLESTEROL 115 mg/dL; GFR - MDRD 75 (>89); GLUCOSE 108 mg/dL (70-100); HDL CHOLESTEROL 37 mg/dL; LDL CHOLESTEROL,CALCULATED 61 mg/dL; LDL/HDL RATIO 1.6 (<3.6); POTASSIUM 4.1 mmol/L (3.5-5.0); SODIUM 138 mmol/L (135-145); TOTAL PROTEIN 7.1 g/dL (6.7-8.2); TRIGLYCERIDES 83 mg/dL; VLDL CHOLESTEROL 17 mg/dL
== END 2021-05-14 23:59 | disposition home or self-care (01) ==
LOC: LAB.WCP 08:10
PROVIDERS: ATTEND Family Medicine
DX: I25.10 Atherosclerotic heart disease of native coronary artery without angina pectoris (principal); Z95.1 Presence of aortocoronary bypass graft; Z87.898 Personal history of other specified conditions
CPT/HCPCS: 36415; 80053; 80061; 80306; 83721; 85025

== ENCOUNTER 2021-05-18 10:14 | Outpatient (CLI) | payer MEDICARE, OTHER ==
--- NOTE | 2021-05-18 13:02 | XRAY Report ---
PROCEDURE: Shoulder 3 View RT INDICATIONS: IMPINGEMENT SYNDROME OF RIGHT SHOULDER TECHNIQUE: 3 views of the shoulder were acquired. COMPARISON: None. FINDINGS: Bones: No fractures or dislocations. Moderate glenohumeral joint osteoarthritis is seen with joint s pace narrowing, subchondral sclerosis and inferior marginal osteophyte formation. Mild acromioclavicu lar joint osteophyte is is seen. No suspicious bony lesions. Visualized ribs appear intact. Soft tissues: Well-corticated calcifications are noted superior to greater tuberosity of humeral head near rotator cuff tendon insertion suggestive of calcific tendinitis. IMPRESSION: Moderate glenohumeral joint osteoarthritis and mild acromioclavicular joint osteoarthrit is. No shoulder fracture or dislocation. Suggestion of calcific tendinitis involving distal rotator c uff tendons. Reviewed by: Rio Rojo MD on 05/18/2021 1:01 PM PDT Approved by: Rio Rojo MD on 05/18/2021 1:01 PM PDT Station ID: [id number]
== END 2021-05-18 10:15 | disposition home or self-care (01) ==
LOC: DI.N 10:14
PROVIDERS: ATTEND Internal Medicine
DX: M19.011 Primary osteoarthritis, right shoulder (principal)

== ENCOUNTER 2021-08-28 09:42 | Day surgery (SDC) | payer MEDICARE, OTHER ==
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
[2021-08-28] MEDS ORDERED: LACTATED RINGERS 1,000 ML IV ONE ×3 (09:51→12:07)
[2021-08-28] MEDS ORDERED: PROPOFOL 500 MG/50 ML 500 MG/50 ML VIAL ONE (10:20)
[2021-08-28] MEDS ORDERED: LIDOCAINE-MPF 2% 5 ML VIAL ONE (10:20)
[2021-08-28 12:00] VITALS: BP 112/61
--- NOTE | 2021-08-28 13:46 | ANESTHESIA POST OP EVALUATION ---
Anesthesia Post Eval - Post Anesthesia Eval Vitals: Last Vital Signs Temp 36.6 C 08/28/21 11:37 Pulse 61 08/28/21 11:59 Resp 20 08/28/21 11:59 BP 112/61 08/28/21 11:59 Pulse Ox 97 08/28/21 11:59 CV Function Including HR & BP: Stable Pain Control: Satisfactory Nausea & Vomiting: Negative Mental Status: Baseline Respiratory Status: Airway Patent Hydration Status: Satisfactory Anesthesia Complications: None
== END 2021-08-28 09:43 | disposition home or self-care (01) ==
LOC: SDS 09:42
PROVIDERS: ATTEND Surgery
PROC: 0DBN8ZZ Excision of Sigmoid Colon, Via Natural or Artificial Opening Endoscopic (ICD-10-PCS; 2021-08-28)
PROC: 0DBP8ZZ Excision of Rectum, Via Natural or Artificial Opening Endoscopic (ICD-10-PCS; principal; 2021-08-28 10:00)
DX: Z12.11 Encounter for screening for malignant neoplasm of colon (principal); K62.1 Rectal polyp; K63.5 Polyp of colon; K57.30 Diverticulosis of large intestine without perforation or abscess without bleeding; K64.8 Other hemorrhoids; I48.91 Unspecified atrial fibrillation; F32.9 Major depressive disorder, single episode, unspecified; J44.9 Chronic obstructive pulmonary disease, unspecified; R19.7 Diarrhea, unspecified
CPT/HCPCS: 45380; J7120

== ENCOUNTER 2022-10-23 12:05 | Outpatient (CLI) | payer MEDICARE, OTHER ==
[2022-10-23 19:42] LABS: BASOPHILS # (AUTO) 0.1 10^3/uL (0.0-0.1); BASOPHILS % (AUTO) 1.3 %; EOSINOPHILS # (AUTO) 0.5 10^3/uL (0.0-0.7); EOSINOPHILS % (AUTO) 6.3 %; HCT - HEMATOCRIT 40.6 % (42.0-52.0); LYMPHOCYTES # (AUTO) 1.8 10^3/uL (1.5-3.5); LYMPHOCYTES % (AUTO) 23.3 %; MEAN CORPUSCULAR HEMOGLOBIN 30.2 pg (27.0-31.0); MEAN CORPUSCULAR VOLUME 94.4 fL (80.0-94.0); MEAN PLATELET VOLUME 10.6 fL (7.4-11.4); MONOCYTES # (AUTO) 1.2 10^3/uL (0.0-1.0); MONOCYTES % (AUTO) 15.4 %; NEUTROPHILS % (AUTO) 53.4 %; PLT - PLATELET COUNT 211 10^3/uL (130-450); RED CELL DISTRIBUTION WIDTH 13.8 % (12.0-15.0); WHITE BLOOD COUNT 7.5 x10^3/uL (4.8-10.8)
[2022-10-23 20:04] LABS: ALBUMIN/GLOBULIN RATIO 1.5 (1.0-2.2); BILIRUBIN,TOTAL 0.5 mg/dL (0.2-1.0); CALCIUM 9.1 mg/dL (8.5-10.3); CREATININE 0.8 mg/dL (0.6-1.2); POTASSIUM 3.9 mmol/L (3.5-5.0); TOTAL PROTEIN 6.7 g/dL (6.7-8.2)
[2022-10-25 15:08] LABS: T-TRANSGLUTAMINASE (TTG) IGA <2 U/mL (0-3); T-TRANSGLUTAMINASE (TTG) IGG <2 U/mL (0-5)
== END 2022-10-23 12:06 | disposition home or self-care (01) ==
LOC: LAB.N 12:05
PROVIDERS: ATTEND Internal Medicine
DX: R19.7 Diarrhea, unspecified (principal)
CPT/HCPCS: 36415; 80053; 83516; 85025; 86364

== ENCOUNTER 2022-10-25 08:00 | Outpatient (CLI) | payer MEDICARE, OTHER | END 2022-10-25 23:59 | disposition home or self-care (01) | LOC: LAB.N 08:00 | PROVIDERS: ATTEND Internal Medicine | DX: R19.7 Diarrhea, unspecified (principal) | CPT/HCPCS: 83993; 87045; 87046; 87329; 87427; 87493 ==

== ENCOUNTER 2023-02-18 10:31 | Outpatient (CLI) | payer MEDICARE, OTHER ==
--- NOTE | 2023-02-18 15:41 | XRAY Report ---
PROCEDURE: Hips 2V BILAT INDICATIONS: HIP JOINT PAIN ON MOVEMENT TECHNIQUE: 2 views of the hip were acquired. COMPARISON: Sacrum/coccyx radiographs 11/10/2020 FINDINGS: Bones: No fractures or dislocations. No suspicious bony lesions. Doubtful narrowing of joint spac e and possible osteophytic lipping. Partially imaged lumbar spine fusion changes. Soft tissues: No suspicious soft tissue calcifications IMPRESSION: No acute fracture or dislocation identified. If there remains a high clinical concern for fracture, c onsider cross-sectional imaging now. If pain persists, consider repeat x-ray in 10-14 days or cross-s ectional imaging. Kellgren-Bro scale of osteoarthritis: Grade 1-2: mild osteoarthritis. Reviewed by: Antoni Hoffman MD on 02/18/2023 3:40 PM PDT Approved by: Antoni Hoffman MD on 02/18/2023 3:40 PM PDT Station ID: [id number]
== END 2023-02-18 10:32 | disposition home or self-care (01) ==
LOC: DI 10:31
PROVIDERS: ATTEND Internal Medicine
DX: M16.0 Bilateral primary osteoarthritis of hip (principal)

== ENCOUNTER 2023-06-09 08:10 | Outpatient (CLI) | payer MEDICARE, OTHER ==
[2023-06-09 12:35] LABS: BASOPHILS # (AUTO) 0.1 10^3/uL (0.0-0.1); BASOPHILS % (AUTO) 1.4 %; EOSINOPHILS # (AUTO) 0.4 10^3/uL (0.0-0.7); EOSINOPHILS % (AUTO) 6.9 %; HCT - HEMATOCRIT 39.8 % (42.0-52.0); HGB - HEMOGLOBIN 12.8 g/dL (14.0-18.0); LYMPHOCYTES # (AUTO) 1.4 10^3/uL (1.5-3.5); LYMPHOCYTES % (AUTO) 22.7 %; MEAN CORPUSCULAR HEMOGLOBIN 30.5 pg (27.0-31.0); MEAN CORPUSCULAR HGB CONC 32.2 g/dL (32.0-36.0); MEAN PLATELET VOLUME 10.7 fL (7.4-11.4); MONOCYTES # (AUTO) 0.9 10^3/uL (0.0-1.0); MONOCYTES % (AUTO) 13.9 %; NEUTROPHILS # (AUTO) 3.5 10^3/uL (1.5-6.6); NEUTROPHILS % (AUTO) 54.8 %; PLT - PLATELET COUNT 196 10^3/uL (130-450); RED BLOOD COUNT 4.19 10^6/uL (4.70-6.10); RED CELL DISTRIBUTION WIDTH 12.9 % (12.0-15.0); WHITE BLOOD COUNT 6.3 x10^3/uL (4.8-10.8)
[2023-06-09 12:52] LABS: ALBUMIN 4.2 g/dL (3.2-5.5); ALBUMIN/GLOBULIN RATIO 1.8 (1.0-2.2); ALKALINE PHOSPHATASE 46 IU/L (42-121); ALT ALANINE AMINOTRANSFERASE 21 IU/L (10-60); AST ASPARTATE AMINOTRANSFERASE 19 IU/L (10-42); BILIRUBIN,TOTAL 0.4 mg/dL (0.2-1.0); BUN - BLOOD UREA NITROGEN 17 mg/dL (6-20); CALCIUM 9.7 mg/dL (8.5-10.3); CARBON DIOXIDE - CO2 32 mmol/L (21-32); CHLORIDE 106 mmol/L (101-111); CHOL/HDL RATIO 2.7 (<5.0); CHOLESTEROL 111 mg/dL; GFR - MDRD 74 (>89); GLUCOSE 100 mg/dL (74-104); HDL CHOLESTEROL 41 mg/dL; LDL CHOLESTEROL,CALCULATED 55 mg/dL; LDL/HDL RATIO 1.3 (<3.6); POTASSIUM 4.2 mmol/L (3.5-4.5); SODIUM 142 mmol/L (135-145); TOTAL PROTEIN 6.6 g/dL (6.4-8.9); TRIGLYCERIDES 75 mg/dL (48-352); VLDL CHOLESTEROL 15 mg/dL
[2023-06-09 12:57] LABS: THYROID STIMULATING HORMONE 1.24 uIU/mL (0.34-5.60)
== END 2023-06-09 08:11 | disposition home or self-care (01) ==
LOC: LAB.N 08:10
PROVIDERS: ATTEND Internal Medicine
DX: M05.9 Rheumatoid arthritis with rheumatoid factor, unspecified (principal); I25.810 Atherosclerosis of coronary artery bypass graft(s) without angina pectoris; Z12.5 Encounter for screening for malignant neoplasm of prostate; I48.0 Paroxysmal atrial fibrillation
CPT/HCPCS: 36415; 80053; 80061; 84443; 85025; G0103; 83721; 84153

== ENCOUNTER 2024-06-21 08:26 | Outpatient (CLI) | payer MEDICARE, OTHER ==
[2024-06-21 12:51] LABS: BASOPHILS # (AUTO) 0.1 10^3/uL (0.0-0.1); BASOPHILS % (AUTO) 1.3 %; EOSINOPHILS # (AUTO) 0.5 10^3/uL (0.0-0.7); HCT - HEMATOCRIT 41.8 % (42.0-52.0); HGB - HEMOGLOBIN 13.7 g/dL (14.0-18.0); LYMPHOCYTES # (AUTO) 1.3 10^3/uL (1.5-3.5); LYMPHOCYTES % (AUTO) 17.3 %; MEAN CORPUSCULAR HEMOGLOBIN 30.9 pg (27.0-31.0); MEAN CORPUSCULAR HGB CONC 32.8 g/dL (32.0-36.0); MEAN CORPUSCULAR VOLUME 94.1 fL (80.0-94.0); MEAN PLATELET VOLUME 10.6 fL (7.4-11.4); MONOCYTES # (AUTO) 0.9 10^3/uL (0.0-1.0); MONOCYTES % (AUTO) 12.2 %; NEUTROPHILS # (AUTO) 4.7 10^3/uL (1.5-6.6); NEUTROPHILS % (AUTO) 62.9 %; PLT - PLATELET COUNT 194 10^3/uL (130-450); RED BLOOD COUNT 4.44 10^6/uL (4.70-6.10); RED CELL DISTRIBUTION WIDTH 12.8 % (12.0-15.0); WHITE BLOOD COUNT 7.5 x10^3/uL (4.8-10.8)
[2024-06-21 13:30] LABS: ALBUMIN 4.1 g/dL (3.2-5.5); ALBUMIN/GLOBULIN RATIO 1.7 (1.0-2.2); ALKALINE PHOSPHATASE 41 IU/L (42-121); ALT ALANINE AMINOTRANSFERASE 15 IU/L (10-60); AST ASPARTATE AMINOTRANSFERASE 17 IU/L (10-42); BILIRUBIN,TOTAL 0.4 mg/dL (0.2-1.0); BUN - BLOOD UREA NITROGEN 18 mg/dL (6-20); CALCIUM 9.4 mg/dL (8.5-10.3); CARBON DIOXIDE - CO2 30 mmol/L (21-32); CHLORIDE 106 mmol/L (101-111); CHOL/HDL RATIO 3.8 (<5.0); CHOLESTEROL 172 mg/dL; GFR - MDRD 74 (>89); GLUCOSE 96 mg/dL (74-104); HDL CHOLESTEROL 45 mg/dL; LDL CHOLESTEROL,CALCULATED 113 mg/dL; LDL/HDL RATIO 2.5 (<3.6); POTASSIUM 4.2 mmol/L (3.5-4.5); SODIUM 141 mmol/L (135-145); TOTAL PROTEIN 6.5 g/dL (6.4-8.9); TRIGLYCERIDES 70 mg/dL; VLDL CHOLESTEROL 14 mg/dL
== END 2024-06-21 08:27 | disposition home or self-care (01) ==
LOC: LAB.N 08:26
PROVIDERS: ATTEND Internal Medicine
DX: I10 Essential (primary) hypertension (principal); E78.5 Hyperlipidemia, unspecified; N40.1 Benign prostatic hyperplasia with lower urinary tract symptoms
CPT/HCPCS: 36415; 80053; 80061; 83721; 84153; 85025